=== PATIENT | female | born 1955 | race Hispanic/Latino ===

== ENCOUNTER → 2023-01-31 | Outpatient (CLI) | payer OTHER | END | disposition home or self-care (01) | LOC: RAH 13:09 | PROVIDERS: ATTEND Orthopaedic Surgery | DX: M17.12 Unilateral primary osteoarthritis, left knee (principal); M25.462 Effusion, left knee; M85.88 Other specified disorders of bone density and structure, other site | CPT/HCPCS: 73700 ==

== ENCOUNTER 2023-05-24 05:39 | Observation (INO) | payer OTHER ==
[2023-05-19 13:07] LABS: CREATININE 0.6 mg/dL (0.5-1.5); POTASSIUM 4.4 mmol/L (3.5-5.1)
[2023-05-19 13:17] LABS: INR 0.93 (0.85-1.15); PARTIAL THROMBOPLASTIN TIME 27.9 SEC (26.3-35.5); PROTHROMBIN TIME 10.7 SEC (9.6-11.6)
[2023-05-19 14:09] VITALS: BP 143/69; RESP 20
[2023-05-24] VITALS (28 sets, daily range): BP systolic 113–142; BP diastolic 51–79; PULSE 64–93; RESP 11–20; O2SAT 97
[~2023-05-24] VITALS: Ht 152.4 cm; Wt 91.6 kg
[~2023-05-24 05:39] MED LIST: AEC81 PO; ASCO100031 PO; ATOR20TA65 PO; LORA0.5T83 PO; MELO-108 PO; OZEMPIC SQ; PANT40TA54 PO; PARO10TA71 PO; RAMI10CA69 PO; VITAMIN D PO
[2023-05-24] MEDS ORDERED: CEFAZOLIN SODIUM 2 GM VIAL ONE (06:24)
[2023-05-24] MEDS ORDERED: LACTATED RINGERS 1000ML 1,000 ML IV ONE (06:24)
[2023-05-24] MEDS ORDERED: KCL 20 MEQ ERTAB PO PRN (08:00)
[2023-05-24] MEDS ORDERED: HYDROCODONE/ACETAMINOPHEN 5/325 MG TAB PO PRN (08:00)
[2023-05-24] MEDS ORDERED: LORAZEPAM 0.5 MG TABLET PO PRN (08:00)
[2023-05-24] MEDS ORDERED: POTASSIUM CHLORIDE 20MEQ/100ML 100 ML IV PRN (08:00)
[2023-05-24] MEDS ORDERED: POTASSIUM CHLORIDE 10% ELIXIR 20 MEQ/15 ML UDCUP PO PRN (08:00)
[2023-05-24] MEDS: 0.9%NACL 1000ML 1,000 ML IV SCH ×2 (08:00→12:57)
[2023-05-24] MEDS ORDERED: ACETAMINOPHEN 1,000 MG/100 ML VIAL IV SCH (08:00)
[2023-05-24] MEDS ORDERED: LIDOCAINE 2%-EPI 1:200,000 20 ML VIAL IJ ONE (08:09)
[2023-05-24] MEDS ORDERED: ROPIVACAINE 0.5% 5MG/ML 30ML IJ ONE (08:09)
[2023-05-24] MEDS ORDERED: KETAMINE 50MG/ML SYRINGE 50 MG/ML DISP.SYRIN ONE (08:11)
[2023-05-24] MEDS ORDERED: LIDOCAINE PF 100MG/5ML (2%) SYRINGE 5ML ONE (08:11)
[2023-05-24] MEDS ORDERED: PROPOFOL 10 MG/ML 20ML VIAL IV ONE (08:11)
[2023-05-24] MEDS ORDERED: SUCCINYLCHOLINE CHLORIDE 20 MG/ML 10 ML VIAL ONE (08:11)
[2023-05-24] MEDS ORDERED: MIDAZOLAM HCL 1 MG/ML 2ML VIAL ONE (08:12)
[2023-05-24] MEDS: PAROXETINE HCL 20 MG TABLET PO SCH (08:30)
[2023-05-24] MEDS ORDERED: ROCURONIUM 10MG/1ML SYR 10 MG/ML ML ONE ×2 (08:58→10:22)
[2023-05-24] MEDS ORDERED: NON-FORMULARY MEDICATION 1 EACH (Paroxetine HCl 10 MG) PO SCH (09:00)
[2023-05-24] MEDS: FAMOTIDINE 20MG TAB PO SCH ×2 (09:00→21:03)
[2023-05-24] MEDS: PANTOPRAZOLE 40 MG TAB DR PO SCH (09:00)
[2023-05-24] MEDS: LISINOPRIL 20 MG TABLET PO SCH (09:00)
[2023-05-24] MEDS: POLYETHYLENE GLYCOL 3350 17 GM POWD.PACK PO SCH (09:00)
[2023-05-24] MEDS: ASPIRIN 81 MG EC TAB PO SCH ×2 (09:00→21:03)
[2023-05-24] MEDS ORDERED: CEFAZOLIN SODIUM 2 GM VIAL IVPB ONE (09:25)
[2023-05-24] MEDS ORDERED: EPHEDRINE SULFATE 50 MG/ML AMPULE ONE (09:28)
[2023-05-24] MEDS ORDERED: FENTANYL CITRATE PF 50 MCG/1 ML 2ML VIAL ONE ×2 (09:39→10:57)
[2023-05-24] MEDS ORDERED: KETOROLAC 30MG VIAL (30MG/ML) ONE (10:34)
[2023-05-24] MEDS ORDERED: GLYCOPYRROLATE 1 MG/5 ML SYRINGE ONE (10:34)
[2023-05-24] MEDS ORDERED: ONDANSETRON 4MG INJ ONE (10:34)
[2023-05-24] MEDS ORDERED: NEOSTIGMINE 5MG/5ML SYR IV ONE (10:34)
[2023-05-24] MEDS ORDERED: MEPERIDINE-PF 25 MG/ML SYG ONE ×2 (11:33→11:44)
[2023-05-24] MEDS ORDERED: RAMIPRIL 10 MG PO SCH (12:00)
[2023-05-24] MEDS: IBUPROFEN 800MG + NS 250ML IV SCH ×2 (12:58→21:02)
[2023-05-24] MEDS: TRAMADOL HCL 50 MG TABLET PO SCH ×3 (12:58→23:32)
[2023-05-24] MEDS: CEFAZOLIN SODIUM 2 GM VIAL IVPB SCH ×2 (15:02→21:03)
[2023-05-24] MEDS: ACETAMINOPHEN 1,000 MG/100 ML VIAL IV SCH ×2 (17:46→23:30)
[2023-05-24] MEDS: HYDROCODONE/ACETAMINOPHEN 10/325 MG TAB PO PRN (22:09)
[2023-05-25] VITALS (7 sets, daily range): BP systolic 122–146; BP diastolic 60–73; PULSE 66–82; RESP 18–19; O2SAT 95
[2023-05-25] MEDS: ONDANSETRON 4MG INJ IVP PRN ×2 (03:17→20:10)
[2023-05-25] MEDS: MORPHINE 4 MG SYG IVP PRN ×4 (03:18→20:10)
[2023-05-25 04:03] LABS: HEMATOCRIT 36.4 % (36-48); MEAN CORPUSCULAR HEMOGLOBIN 30.2 pg (27.0-33.0); MEAN CORPUSCULAR VOLUME 91.7 fL (79-99); RED BLOOD CELL COUNT(AUTO) 3.97 MIL/uL (4.00-5.50); RED CELL DISTRIBUTION WIDTH 13.8 % (11.0-15.5)
[2023-05-25] MEDS: IBUPROFEN 800MG + NS 250ML IV SCH (04:15)
[2023-05-25] MEDS: 0.9%NACL 1000ML 1,000 ML IV SCH (04:15)
[2023-05-25 04:16] LABS: CREATININE 0.6 mg/dL (0.5-1.5); POTASSIUM 3.4 mmol/L (3.5-5.1)
[2023-05-25] MEDS: TRAMADOL HCL 50 MG TABLET PO SCH ×3 (05:37→18:00)
[2023-05-25] MEDS: HYDROCODONE/ACETAMINOPHEN 10/325 MG TAB PO PRN ×2 (09:10→23:13)
[2023-05-25] MEDS: POLYETHYLENE GLYCOL 3350 17 GM POWD.PACK PO SCH (10:04)
[2023-05-25] MEDS: ASPIRIN 81 MG EC TAB PO SCH ×2 (10:05→20:10)
[2023-05-25] MEDS: PANTOPRAZOLE 40 MG TAB DR PO SCH (10:05)
[2023-05-25] MEDS: PAROXETINE HCL 20 MG TABLET PO SCH (10:05)
[2023-05-25] MEDS: LISINOPRIL 20 MG TABLET PO SCH (10:05)
[2023-05-25] MEDS: FAMOTIDINE 20MG TAB PO SCH ×2 (10:05→20:10)
[2023-05-26] MEDS: TRAMADOL HCL 50 MG TABLET PO SCH ×3 (00:03→12:37)
[2023-05-26] MEDS: MORPHINE 4 MG SYG IVP PRN (02:22)
[2023-05-26 03:47] VITALS: BP 123/54; PULSE 79; RESP 18
[2023-05-26 07:49] VITALS: BP 119/60; PULSE 74; RESP 18
[2023-05-26 08:00] VITALS: O2SAT 95
[2023-05-26] MEDS: PANTOPRAZOLE 40 MG TAB DR PO SCH (09:03)
[2023-05-26] MEDS: ASPIRIN 81 MG EC TAB PO SCH (09:03)
[2023-05-26] MEDS: FAMOTIDINE 20MG TAB PO SCH (09:03)
[2023-05-26] MEDS: LISINOPRIL 20 MG TABLET PO SCH (09:03)
[2023-05-26] MEDS: POLYETHYLENE GLYCOL 3350 17 GM POWD.PACK PO SCH (09:03)
[2023-05-26] MEDS: PAROXETINE HCL 20 MG TABLET PO SCH (09:03)
[2023-05-26] MEDS: HYDROCODONE/ACETAMINOPHEN 10/325 MG TAB PO PRN ×2 (09:04→16:02)
[2023-05-26 12:47] VITALS: BP 119/59; PULSE 79; RESP 17
[2023-05-27] MEDS ORDERED: BISACODYL 10 MG SUPP.RECT RC PRN (08:00)
== END 2023-05-26 16:45 ==
LOC: DAH 05:39 → DAHIP 05:40 → DAH 05:40 → 4BH 12:20
PROVIDERS: ADMIT Orthopaedic Surgery; ATTEND Orthopaedic Surgery
DX: M17.12 Unilateral primary osteoarthritis, left knee (principal); Z20.822 Contact with and (suspected) exposure to COVID-19; G89.18 Other acute postprocedural pain; E87.6 Hypokalemia; E11.9 Type 2 diabetes mellitus without complications; E78.5 Hyperlipidemia, unspecified; I10 Essential (primary) hypertension; K21.9 Gastro-esophageal reflux disease without esophagitis; E66.9 Obesity, unspecified; Z68.39 Body mass index [BMI] 39.0-39.9, adult; Z79.899 Other long term (current) drug therapy
CPT/HCPCS: 80048 ×2; 85610; 85730; 87426; 87641; 64447; 27447; 96376 ×3; 96365; 96366; 96375 ×2; 96368; 82948 ×4; 36415 ×2; 97161; 85027; 97039 ×4; 97116 ×5; 97530; A6260; C1713; C1776 ×3; G0378 ×52; A4663; J7030; A4600 ×2; J7120; J3010 ×2; J3490 ×4; J2710; J0330; J2001; J2250; J2704; J2405 ×3; J1885; J2175 ×2; J2795; J1741 ×3; J0690 ×4; A6223; G0168; A4649 ×2; A6212; A4215; A4223; A4222; A4221; A5120; J2270 ×5